=== PATIENT | male | born 1960 | race Caucasian/White ===

== ENCOUNTER 2021-01-04 11:29 | Inpatient (IN) ==
[2021-01-04] MEDS ORDERED: OLANZapine 5 MG TAB.RAPDIS PO STA (11:46)
[2021-01-04] MEDS ORDERED: Haloperidol Lactate 5 MG/ML VIAL IM ONE (12:10)
[2021-01-04] MEDS ORDERED: traZODone 50 MG TABLET PO PRN (14:59)
[2021-01-04] MEDS ORDERED: hydrOXYzine pamoate 25 MG CAPSULE PO PRN (14:59)
[2021-01-04] MEDS ORDERED: Acetaminophen 325 MG TABLET PO PRN (14:59)
[2021-01-04] MEDS ORDERED: *HR* LORazepam 1 MG TABLET PO PRN (14:59)
[2021-01-04] MEDS ORDERED: haloperidoL 5 MG TABLET PO PRN (14:59)
[2021-01-04] MEDS ORDERED: Mag Hydrox/Al Hydrox/Simeth 30 ML UDC PO PRN (15:28)
[2021-01-04] MEDS ORDERED: MOM Conc 10 ML UD.LIQ PO PRN (15:28)
[2021-01-04] MEDS: OLANZapine 10 MG TAB.RAPDIS PO SCH (21:22)
[2021-01-05] MEDS: Haloperidol Lactate 5 MG/ML VIAL IM PRN ×3 (01:02→22:57)
[2021-01-05] MEDS: *HR* LORazepam 2 MG/ML VIAL IM PRN ×3 (01:02→22:58)
[2021-01-05] MEDS: Levothyroxine 25 MCG TABLET PO SCH ×2 (06:48→09:19)
[2021-01-05] MEDS: Nicotine 21 MG PATCH.TD24 TD SCH (09:16)
[2021-01-05] MEDS: lisinopriL 5 MG TABLET PO SCH (09:18)
[2021-01-05] MEDS: *HR* GlyBURIDE 2.5 MG TABLET PO SCH ×2 (12:04→17:57)
[2021-01-05] MEDS: OLANZapine 10 MG TAB.RAPDIS PO SCH ×2 (21:36→22:59)
[2021-01-06] MEDS: Nicotine 21 MG PATCH.TD24 TD SCH (09:57)
[2021-01-06] MEDS: *HR* LORazepam 2 MG/ML VIAL IM PRN (10:08)
[2021-01-06] MEDS: Haloperidol Lactate 5 MG/ML VIAL IM PRN (10:08)
[2021-01-06] MEDS: lisinopriL 5 MG TABLET PO SCH (12:37)
[2021-01-06] MEDS: Levothyroxine 25 MCG TABLET PO SCH (12:37)
[2021-01-06] MEDS: *HR* GlyBURIDE 2.5 MG TABLET PO SCH ×2 (12:37→18:04)
[2021-01-06] MEDS: OLANZapine 10 MG TAB.RAPDIS PO SCH (20:27)
[2021-01-06] MEDS: Lithium Carbonate 300 MG CAPSULE PO SCH (20:27)
[2021-01-07] MEDS: Levothyroxine 25 MCG TABLET PO SCH (06:28)
[2021-01-07] MEDS: *HR* GlyBURIDE 2.5 MG TABLET PO SCH ×2 (08:33→17:09)
[2021-01-07] MEDS: lisinopriL 5 MG TABLET PO SCH (08:33)
[2021-01-07] MEDS: Nicotine 21 MG PATCH.TD24 TD SCH (08:34)
[2021-01-07] MEDS: Lithium Carbonate 300 MG CAPSULE PO SCH (20:28)
[2021-01-07] MEDS: OLANZapine 10 MG TAB.RAPDIS PO SCH (20:28)
[2021-01-08] MEDS: Levothyroxine 25 MCG TABLET PO SCH (06:16)
[2021-01-08] MEDS: *HR* GlyBURIDE 2.5 MG TABLET PO SCH ×2 (08:54→17:42)
[2021-01-08] MEDS: lisinopriL 5 MG TABLET PO SCH (08:54)
[2021-01-08] MEDS: Nicotine 21 MG PATCH.TD24 TD SCH (08:54)
[2021-01-08] MEDS: OLANZapine 10 MG TAB.RAPDIS PO SCH (20:21)
[2021-01-08] MEDS: Lithium Carbonate 300 MG CAPSULE PO SCH (20:21)
[2021-01-09] MEDS: Levothyroxine 25 MCG TABLET PO SCH (05:55)
[2021-01-09] MEDS: *HR* GlyBURIDE 2.5 MG TABLET PO SCH (08:49)
[2021-01-09] MEDS: Nicotine 21 MG PATCH.TD24 TD SCH (08:49)
[2021-01-09] MEDS: lisinopriL 5 MG TABLET PO SCH (08:49)
[2021-01-09 09:33] VITALS: BP 121/80
[2021-01-09 13:47] LABS: Basophils # 0.1 K/mcL (0.0-0.2); Basophils % 0.8 %; Eosinophils # 0.3 K/mcL (0.0-0.6); Eosinophils % 2.6 %; Hemoglobin 14.3 g/dL (12.9-16.9); Immature Granulocytes % 0.4 % (0-4); Lymphocytes # 2.1 K/mcL (0.6-4.6); Lymphocytes % 19.9 %; Mean Corpuscular HGB Conc 33.3 g/dL (31.6-35.5); Mean Corpuscular Hemoglobin 31.2 pg (28.0-33.3); Mean Corpuscular Volume 93.7 fL (83.0-100.0); Mean Platelet Volume 9.7 fL (9.4-12.4); Monocytes % 9.1 %; Neutrophils # 7.1 K/mcL (1.6-8.9); Platelet Count 269 K/mcL (140-400); Red Blood Count 4.59 M/mcL (4.19-5.50); Red Cell Distribution Width 12.8 % (11.5-14.5); Segmented Neutrophils % 67.2 %; White Blood Count 10.6 K/mcL (4.3-11.1)
[2021-01-09 14:08] LABS: Alanine Aminotransferase 29 Units/L (7-52); Albumin 4.2 g/dL (3.5-5.7); Albumin/Globulin Ratio 1.8 (1.1-2.2); Alkaline Phosphatase 106 Units/L (34-104); Aspartate Amino Transferase 23 Units/L (13-39); BUN/Creatinine Ratio 18 (6-26); Bilirubin,Total 0.3 mg/dL (0.3-1.0); Blood Urea Nitrogen 19 mg/dL (6-20); Calcium 9.6 mg/dL (8.6-10.3); Carbon Dioxide 25 mEq/L (23-29); Chloride 103 mEq/L (98-107); Chol/HDL Ratio 2.8 (0-4.9); Cholesterol 110 mg/dL (< 200); Globulin 2.4 g/dL (2.4-3.5); Glucose 166 mg/dL (70-105); HDL Cholesterol 39 mg/dL (40-59); LDL Cholesterol,Calculated 39 mg/dL (< 100); Osmolality,Calculated 286 (280-300); Potassium 4.1 mEq/L (3.5-5.1); Sodium 135 mEq/L (136-145); Total Protein 6.6 g/dL (6.4-8.9); Triglycerides 158 mg/dL (< 150); eGFR For African Americans > 60 (> 60); eGFR For Non-African Americans > 60 (> 60)
[2021-01-09 14:20] LABS: Thyroid Stimulating Hormone 2.752 mcIU/mL (0.340-5.600)
== END 2021-01-09 16:05 | disposition home or self-care (01) | DRG 750 ==
LOC: EMEROOARM 11:29 → SUATTDRO 14:46 → INTOOBSV 14:46 → 1ANU 14:46
PROVIDERS: ADMIT Psychiatry & Neurology Psychiatry; ATTEND Psychiatry & Neurology Forensic Psychiatry